=== PATIENT | female | born 1935 | race Caucasian/White ===

== ENCOUNTER → 2021-03-19 | Outpatient (CLI) | payer OTHER ==
[~2021-03-19] MED LIST: ADVAIR HFA 230M1 AER IH; ADVAIRDISKUS; ALBUTEROL2.5 MG/31 INH; ALIGN4 MG PO; ALTACE5 M1; AMITRIPTYLINE H50 M4 PO; AVELOX 400 MG400 MG PO; BENTYL 20 MG TA20 M1 PO; CALCIUM PO; CARAFATE1 GM/10 ML PO; CENTRUM COMPLE1 EACH; CITRACAL + BON1 EACH PO; CYMBALTA30 MG PO; Centrum Silver Ultra PO; DEXILANT60 MG PO; DIAZEPAM 2MG TAB2 MG PO; DOXYCYCLINE 10100 M1 PO; DOXYCYCLINE 10100 M2 PO; DUONEB 2.5-0.5 M3 ML INH; DYMISTA NASAL S23 GM NS; ELMIRON 100 MG100 M1 PO; FLEXERIL PO; FLOMAX PO; FLONASE 0.05%50 MCG NASAL; FLORASTOR250 MG PO; FOSAMAX 70 MG T70 MG PO; HYDROCHLOROTHIA25 M1 PO; HYDROCODONE-AP1 EAC6 PO; IBUPROFEN 800800 MG PO; KEFLEX500 MG PO; LANSOPRAZOLE30 MG PO; LEVAQUIN 500 M500 M2 PO; LEVO-T50 MCG PO; LEVSIN0.125 MG PO; MAGOX 400400 MG PO; MIRALAX17 GM PO; MULTIVITAMINS; NEXIUM40 MG; NEXIUM40 MG PO; NORCO 5-325 TA1 EACH PO; OMEPRAZOLE; OMEPRAZOLE40 MG PO; ONDANSETRON HCL4 M2 PO; ORPHENADRINE C100 M2 PO; PHENAZOPYRIDIN100 M1 PO; PROBIOTIC1 EAC1 PO; PROTONIX40 M1 PO; PROTONIX40 M2 PO; PULMICORT0.25 MG/2 INH; PYRIDIUM100 M1 PO; REGLAN 5 MG TAB5 MG PO; RESTORIL; RESTORIL30 MG PO; ROCEPHIN 11 GM/1001 IV; Ramipril 5mg PO; SENNA8.6 MG PO; SINGULAIR 10 MG10 M1 PO; SPIRIVA; SYMBICORT160 MCG/4. INH; SYNTHROID75 MCG PO; TRAMADOL 50 MG50 MG PO; TUSSINMAX15 MG/5 ML PO; TUSSIONEX PENN473 ML PO; ULTRAM 50MG TAB50 MG PO; VENTOLIN HFA 1818 GM INH; VITAMIN D1000 UNI1 PO; VITAMIN D31000 UNI2 PO; XANAX 0.5 MG0.5 MG PO; XIFAXAN550 M1 PO; ZANTAC 150MG T150 M1 PO; ZANTAC 150MG T150 MG PO; ZOFRAN ODT4 MG PO; ZOFRAN4 MG PO; ZOLOFT100 MG
== END ==
LOC: PET 09:12
PROVIDERS: ATTEND Internal Medicine Critical Care Medicine
DX: R91.8 Other nonspecific abnormal finding of lung field (principal); J98.4 Other disorders of lung; R91.1 Solitary pulmonary nodule; M47.819 Spondylosis without myelopathy or radiculopathy, site unspecified; K76.0 Fatty (change of) liver, not elsewhere classified; M48.00 Spinal stenosis, site unspecified; Z88.8 Allergy status to other drugs, medicaments and biological substances; Z90.49 Acquired absence of other specified parts of digestive tract